=== PATIENT | female | born 1970 | race Caucasian/White ===

== ENCOUNTER 2019-06-30 10:29 | Emergency (ER) | payer SELFPAY ==
[~2019-06-30] VITALS: Wt 76.0 kg
[2019-06-30 10:48] VITALS: BP 140/77; PULSE 77; RESP 18
== END 2019-06-30 11:58 | disposition left against medical advice (07) ==
LOC: E/R 10:29
DX: Z53.21 Procedure and treatment not carried out due to patient leaving prior to being seen by health care provider (principal)
CPT/HCPCS: 82962